=== PATIENT | female | born 1945 ===

== ENCOUNTER 2023-07-28 12:15 | Inpatient (IN) | payer OTHER ==
[~2023-07-28] VITALS: Ht 162.6 cm; Wt 63.5 kg
[2023-07-28] MEDS ORDERED: ATORVASTATIN CA20 MG (13:26)
[2023-07-28] MEDS ORDERED: ARICEPT10 MG (13:26)
[2023-07-28] MEDS ORDERED: BUSPIRONE HCL7.5 MG (13:26)
[2023-07-28] MEDS ORDERED: MEMANTINE HCL5 MG (13:27)
[2023-07-28] MEDS ORDERED: PEPCID AC20 MG (13:27)
[2023-08-03] MEDS ORDERED: DICLOFENAC SODI50 GM (08:09)
[2023-08-03] MEDS ORDERED: METRONIDAZOLE/SODIUM CHLORIDE 500 MG/100 ML PIGGYBACK IV ONE (10:38)
[2023-08-03] MEDS ORDERED: CEFTRIAXONE SODIUM 2,000 MG VIAL ONE (10:38)
[2023-08-03] MEDS ORDERED: CEFTRIAXONE SODIUM 2,000 MG VIAL IV SCH (12:15)
[2023-08-03] MEDS ORDERED: METRONIDAZOLE/SODIUM CHLORIDE 500 MG/100 ML PIGGYBACK IV SCH (12:15)
[2023-08-03] MEDS ORDERED: SUGAMMADEX SODIUM 200 MG/2 ML VIAL IV ONE ×2 (12:54→13:15)
[2023-08-03] MEDS ORDERED: DEXTROSE 50 % IN WATER 0.5 G/ML DISP.SYRIN IV PRN (13:15)
[2023-08-03] MEDS ORDERED: OxyCODONE HCL 5 MG TABLET (ROXICODONE) PO PRN (13:15)
[2023-08-03] MEDS ORDERED: RINGERS SOLUTION,LACTATED 1,000 ML IV SCH (13:15)
[2023-08-03] MEDS ORDERED: MORPHINE SULFATE 4 MG/ML CARTRIDGE IV PRN (13:15)
[2023-08-03] MEDS ORDERED: INSULIN LISPRO 1,000 UNIT/10 ML UNITS SUBCUTANEO PRN (13:15)
[2023-08-03] MEDS ORDERED: ONDANSETRON HCL 2 MG/ML VIAL IV PRN (13:15)
[2023-08-03] MEDS ORDERED: ACETAMINOPHEN 500 MG GEL..CAP PO SCH (14:00)
[2023-08-03 16:51] LABS: HEMATOCRIT 39.5 % (36.0-45.00); HEMOGLOBIN 12.9 g/dL (12.0-15.00); MEAN CELL VOLUME 86.8 fL (80.00-100.00); MEAN CORPUSCULAR HEMOGLOBIN 28.3 pg (27.00-32.0); MEAN CORPUSCULAR HGB CONC 32.6 g/dl (32.0-36.0); PLATELET COUNT 237 K/uL (150-450); RED BLOOD COUNT 4.55 M/uL (4.00-6.00); RED CELL DISTRIBUTION WIDTH 14.4 % (11.5-14.5)
[2023-08-03] MEDS ORDERED: POLYETHYLENE GLYCOL 3350 17 GM BLIST.PACK PO SCH (17:00)
[2023-08-03] MEDS ORDERED: DONEPEZIL HCL 10 MG TABLET PO SCH (17:00)
[2023-08-03] MEDS ORDERED: GABAPENTIN 300 MG CAPSULE PO SCH (17:00)
[2023-08-03] MEDS ORDERED: HYOSCYAMINE SULFATE 0.125 MG TAB.SUBL SL SCH (17:00)
[2023-08-03 17:25] LABS: ALBUMIN 3.6 gm/dL (3.4-5.0); CALCIUM 9.4 mg/dL (8.5-10.1); CREATININE SERUM 0.67 mg/dL (0.55-1.02); GFR 85.12; MAGNESIUM 1.9 mg/dL (1.8-2.4); POTASSIUM 3.89 mEq/L (3.5-5.1)
[2023-08-03] MEDS ORDERED: FAMOTIDINE/PF 20 MG/2 ML VIAL IV PUSH SCH (21:00)
[2023-08-03] MEDS ORDERED: CELECOXIB 200 MG CAPSULE PO SCH (21:00)
[2023-08-04 06:53] LABS: HEMATOCRIT 35.2 % (36.0-45.00); HEMOGLOBIN 11.8 g/dL (12.0-15.00); MEAN CELL VOLUME 86.4 fL (80.00-100.00); MEAN CORPUSCULAR HGB CONC 33.6 g/dl (32.0-36.0); PLATELET COUNT 207 K/uL (150-450); RED BLOOD COUNT 4.07 M/uL (4.00-6.00); RED CELL DISTRIBUTION WIDTH 14.2 % (11.5-14.5)
[2023-08-04 07:19] LABS: ALBUMIN 3.1 gm/dL (3.4-5.0); CALCIUM 8.8 mg/dL (8.5-10.1); CREATININE SERUM 0.71 mg/dL (0.55-1.02); GFR 79.61; PHOSPHOROUS 2.7 mg/dL (2.5-4.9); POTASSIUM 3.75 mEq/L (3.5-5.1)
[2023-08-04] MEDS ORDERED: MEMANTINE HCL 5 MG TABLET PO SCH (09:00)
[2023-08-04] MEDS ORDERED: BUSPIRONE HCL 15 MG TABLET PO SCH (09:00)
[2023-08-04] MEDS ORDERED: QUETIAPINE FUMARATE 25 MG TABLET PO SCH (13:25)
[2023-08-04] MEDS ORDERED: ENOXAPARIN SODIUM 40 MG/0.4 ML SYRINGE SUBCUTANEO SCH (17:00)
[2023-08-04] MEDS ORDERED: HALOPERIDOL LACTATE 5 MG/ML AMPUL IM PRN (20:30)
[2023-08-04] MEDS ORDERED: LORazepam 2 MG/ML VIAL IV ONE (20:30)
[2023-08-05] MEDS ORDERED: ENOXAPARIN SODIUM 40 MG/0.4 ML SYRINGE SUBCUTANEO SCH (09:00)
[2023-08-06] MEDS ORDERED: LEVSIN0.125 MG PO (16:01)
[2023-08-06] MEDS ORDERED: BUSPIRONE HCL 5 MG TABLET PO SCH (17:00)
[2023-08-07] MEDS ORDERED: LEVOTHYROXINE SODIUM 50 MCG TABLET PO SCH (06:00)
== END 2023-08-06 18:15 | disposition home or self-care (01) | DRG 330 ==
LOC: O/R 08-03 06:00 → SURH 08-03 12:15 → SURG 08-03 14:25 → SURH 08-03 20:45 → SURG 08-06 18:15
PROVIDERS: ADMIT Surgery; ATTEND Surgery
PROC: 0DBP4ZZ Excision of Rectum, Percutaneous Endoscopic Approach (ICD-10-PCS; 2023-08-03)
PROC: 07BB4ZZ Excision of Mesenteric Lymphatic, Percutaneous Endoscopic Approach (ICD-10-PCS; 2023-08-03)
PROC: 0DTN4ZZ Resection of Sigmoid Colon, Percutaneous Endoscopic Approach (ICD-10-PCS; principal; 2023-08-03 20:45)
DX: K57.20 Diverticulitis of large intestine with perforation and abscess without bleeding (principal); N32.1 Vesicointestinal fistula; N73.6 Female pelvic peritoneal adhesions (postinfective); N99.4 Postprocedural pelvic peritoneal adhesions